=== PATIENT | male | born 1955 | race Caucasian/White ===

== ENCOUNTER 2020-06-15 15:49 | Outpatient (CLI) | payer MEDICARE, SELFPAY ==
--- NOTE | ~2020-06-15 | XR_ITS ---
XR abdomen/kub 1V 06/15/2020 16:13 INDICATION: Abdomen pain TECHNIQUE: KUB COMPARISON: None FINDINGS: Bowel gas pattern is normal. There is no evidence of free air, mass, organomegaly, ascites or obstruction. No abnormal calculi are seen. There are pelvic phleboliths The bones appear intact. IMPRESSION: 1: No acute abdominal abnormality identified. Reviewed, dictated and finalized at location A. [employer]
== END 2020-06-15 15:50 | disposition home or self-care (01) ==
LOC: ANHIMG 15:51
PROVIDERS: PCP Family Medicine; Visit Provider Physician Assistant
DX: R14.0 Abdominal distension (gaseous) (principal); R10.9 Unspecified abdominal pain
CPT/HCPCS: 74018

== ENCOUNTER 2020-06-16 12:38 | Outpatient (CLI) | payer MEDICARE, SELFPAY | END 2020-06-16 12:39 | disposition home or self-care (01) | LOC: ANHLAB 12:42 | PROVIDERS: PCP Family Medicine; Visit Provider Physician Assistant | DX: R19.7 Diarrhea, unspecified (principal) | CPT/HCPCS: 87045; 87046; 87427 ==

== ENCOUNTER 2020-06-24 08:28 | Outpatient (CLI) | payer MEDICARE, SELFPAY ==
[2020-06-24 08:48] LABS: Basophils Percent Auto 0.4 % (0.2-1.2); Eosinophils Absolute Auto 0.1 K/mm3 (0-0.3); Eosinophils Percent Auto 0.7 % (0-4.4); Hematocrit 38.7 % (42.0-52.0); Hemoglobin 12.8 g/dL (14.0-18.0); Immature Granulocyte Absolute 0.01 K/mm3 (0.00-0.031); Immature Granulocyte Percent A 0.1 % (0-0.5); Lymphocytes Absolute Auto 2.96 K/mm3 (0.9-3.2); Mean Corpuscular HGB Conc 33.1 g/dl (32-36); Mean Corpuscular Hemoglobin 31.1 pg (26-34); Mean Corpuscular Volume 94.2 fl (80-100); Mean Platelet Volume 10.1 fl (7.4-10.4); Monocytes Absolute Auto 0.6 K/mm3 (0.1-0.6); Monocytes Percent Auto 8.5 % (2.6-8.5); Neutrophils Absolute Auto 3.7 K/mm3 (1.3-6.7); Neutrophils Percent Auto 50.3 % (45.5-73.1); Platelet Count Result 227 k/mm3 (150-375); Red Blood Count 4.11 M/mm3 (4.6-6.20); Red Cell Distribution Width 12.6 % (11.5-14.5); White Blood Count 7.4 K/mm3 (4.5-10.0)
[2020-06-24 09:02] LABS: Anion Gap 6 mmol/L (8-16); Blood Urea Nitrogen 15 mg/dL (9-20); Carbon Dioxide 31 mmol/L (22-30); Chloride 105 mmol/L (98-107); Estimated Glomerular Filt Rate > 60; Glucose 96 mg/dL (75-110); Potassium 3.9 mmol/L (3.4-5.0); Sodium 142 mmol/L (137-145)
== END 2020-06-24 08:29 | disposition home or self-care (01) ==
PROVIDERS: PCP Family Medicine; Visit Provider Family Medicine
DX: R19.7 Diarrhea, unspecified (principal)
CPT/HCPCS: 36415; 80048; 85025

== ENCOUNTER → 2020-08-24 00:48 | Outpatient (CLI) | payer MEDICARE, SELFPAY ==
[2020-08-24 19:08] LABS: SARS-CoV-2 RNA PCR Negative
== END ==
PROVIDERS: PCP Family Medicine; Visit Provider Internal Medicine Gastroenterology
DX: Z01.812 Encounter for preprocedural laboratory examination (principal); Z20.822 Contact with and (suspected) exposure to COVID-19
CPT/HCPCS: C9803; U0003; U0005

== ENCOUNTER → 2020-10-02 00:43 | Outpatient (CLI) | payer MEDICARE, SELFPAY ==
[2020-10-03 00:06] LABS: SARS-CoV-2 RNA PCR Negative
== END ==
PROVIDERS: PCP Family Medicine; Visit Provider Internal Medicine Gastroenterology
DX: Z01.812 Encounter for preprocedural laboratory examination (principal); Z20.822 Contact with and (suspected) exposure to COVID-19
CPT/HCPCS: C9803; U0003; U0005

== ENCOUNTER 2020-10-06 01:59 | Day surgery (SDC) | payer MEDICARE, SELFPAY ==
[2020-08-17 12:19] VITALS: BMI 26.9
[2020-09-27 14:14] VITALS: BMI 25.4
[2020-10-06 06:48] VITALS: BP 94/86; PULSE 71; RESP 16; TEMP 36.3; O2SAT 97; BMI 25.5
[2020-10-06] MEDS: LACTATED RINGERS 1,000 ML 150 ML IV CONT (06:57)
--- NOTE | 2020-10-06 07:33 | WPDANESEPPF ---
Anes - Initial Pre Proc Eval Procedure: Operation Date: 10/06/20 08:00 Proposed Procedures p Esophagogastroduodenoscopy & Colonoscopy - Larry Espinoza MD Date/Time: 10/06/20 07:33 Surgeon: Larry Espinoza MD Pre Op Diagnosis: Diarrhea, Anemia Patient Data Age: 65 Gender: M Height: 6 ft 2 in Weight: 90.4 kg Last Vital Signs Temp 97.4 F L 10/06/20 06:48 Pulse 71 10/06/20 06:48 Resp 16 10/06/20 06:48 BP 94/86 L 10/06/20 06:48 Pulse Ox 97 10/06/20 06:48 Allergies Allergy/AdvReac Type Severity Reaction Status Date / Time carbinoxamine [Rondec] Allergy Intermediate Unknown Verified 10/06/20 06:46 codeine Allergy Intermediate Gastrointestinal Verified 10/06/20 06:46 Upset pseudoephedrine [Rondec] Allergy Intermediate Unknown Verified 10/06/20 06:46 Home Medications Medication Instructions Recorded Confirmed Type buspirone 5 mg tablet 5 mg PO BID #60 tablet 08/13/20 10/06/20 Rx ferrous sulfate 325 mg PO EVERY OTHER DAY 08/17/20 10/06/20 History mecobalamin (vitamin B12) 2,000 mg PO DAILY 08/17/20 10/06/20 History zjlngqvw-pod-xzzyh-vit K-lycop 0.5 tablet PO DAILY 08/17/20 10/06/20 History [One-A-Day Men's 50 Plus] sodium,potassium,mag sulfates 17.5 See Rx Instructions PO .COMPLEX 08/17/20 10/06/20 Rx gram-3.13 gram-1.6 gram oral soln #354 ml Patient hx anesthesia problems: none Family hx anesthesia problems: none PMFSH Past Medical History Medical History Alcohol abuse Belching Central perforation of tympanic membrane, unspecified ear Diarrhea Diverticulosis History of kidney stones Nephrolithiasis Tobacco abuse Surgical History Surgical History Status post laser lithotripsy of ureteral calculus Family History Family History Mother Hypertension, Onset Age: 84 Family history of cardiovascular disease, Onset Age: 84 Father Patient's father is , Onset Age: 96 Sibling Patient's brother is in good health Other Familial Alzheimer's disease of late onset Social History Social History (Updated 08/13/20 @ 15:33 by Grisel Jimenez) Social History: Smoking packs per day: 1 Smoking cigarettes per day: 20.0 Years smoked: 20 Smoking pack-years: 20.00 Smoking status: Former smoker Tobacco type: cigarettes Second hand tobacco smoke exposure: No Smoking end date: 06/25/89 Alcohol intake: former Substance use: never Substance use type: does not use Living arrangements: with family Gender identity (if verbalized by the patient): Male Spiritual care concerns: No Anes - Eval Final PreProcedure Day of Procedure 10/06/20 07:33 Patient weight: overweight Heart: regular rate and rhythm Lungs: clear to auscultation Airway: Mallampati scale (poor dentition; none loose) class II Neurological: alert and oriented Last oral intake: >/= 8 hours ASA classification: II Emergent: no Anesthetic plan: proceed Anesthesia type and monitoring: general GIVS and standard monitoring Informed Consent: The patient's anesthetic plan and its attendant risks and benefits were discussed with the patient/family/POA. Questions were solicited and answers provided to the satisfaction of the patient/family/POA.
--- NOTE | 2020-10-06 08:08 | PM.HPGS ---
History of Present Illness History of Present Illness Consent: Risks, benefits, and alternatives have been discussed and questions answered. Patient agrees to proceed with procedure. Chief complaint: Diarrhea, Anemia Narrative: Mango Richter is a 65 year old male with upper abdominal discomfort and cramping, diarrhea is gone but he is due to have a colonoscopy. Review of Systems Constitutional: Constitutional: Denies headache(s) and Denies weakness Eyes: Eyes: Denies blurry vision ENT: Reports Normal hearing present, Denies headache(s) and Denies neck pain Cardiovascular: Cardiovascular: Denies chest pain and Denies dyspnea Respiratory: Respiratory: Denies dyspnea Gastrointestinal: Gastrointestinal: Reports no additional gastrointestinal complaints Genitourinary: Genitourinary: Denies dysuria Musculoskeletal: Musculoskeletal: Denies neck pain Integumentary/Breasts: Skin/Breast: Denies dry skin Neurologic: Reports Normal hearing present, Denies headache(s) and Denies weakness Psychiatric: Psychiatric: Denies anxiety Endocrine: Endocrine: Denies change in body appearance Hematologic/Lymphatic: Hematologic/Lymphatic: Denies easy bleeding Allergic/Immunologic: Allergic/Immunologic: Denies urticaria PMFSH Past Medical History Medical History Alcohol abuse Belching Central perforation of tympanic membrane, unspecified ear Diarrhea Diverticulosis History of kidney stones Nephrolithiasis Tobacco abuse Surgical History Surgical History Status post laser lithotripsy of ureteral calculus Family History Family History Mother Hypertension, Onset Age: 84 Family history of cardiovascular disease, Onset Age: 84 Father Patient's father is , Onset Age: 96 Sibling Patient's brother is in good health Other Familial Alzheimer's disease of late onset Social History Social History (Updated 08/13/20 @ 15:33 by Grisel Jimenez) Social History: Smoking packs per day: 1 Smoking cigarettes per day: 20.0 Years smoked: 20 Smoking pack-years: 20.00 Smoking status: Former smoker Tobacco type: cigarettes Second hand tobacco smoke exposure: No Smoking end date: 06/25/89 Alcohol intake: former Substance use: never Substance use type: does not use Living arrangements: with family Gender identity (if verbalized by the patient): Male Spiritual care concerns: No Meds Home Medications and Allergies Home Medications Medication Instructions Recorded Confirmed Type buspirone 5 mg tablet 5 mg PO BID #60 tablet 08/13/20 10/06/20 Rx ferrous sulfate 325 mg PO EVERY OTHER DAY 08/17/20 10/06/20 History mecobalamin (vitamin B12) 2,000 mg PO DAILY 08/17/20 10/06/20 History xihbcjhq-ybc-nvdka-vit K-lycop 0.5 tablet PO DAILY 08/17/20 10/06/20 History [One-A-Day Men's 50 Plus] sodium,potassium,mag sulfates 17.5 See Rx Instructions PO .COMPLEX 08/17/20 10/06/20 Rx gram-3.13 gram-1.6 gram oral soln #354 ml Allergies Allergy/AdvReac Type Severity Reaction Status Date / Time carbinoxamine [Rondec] Allergy Intermediate Unknown Verified 10/06/20 06:46 codeine Allergy Intermediate Gastrointestinal Verified 10/06/20 06:46 Upset pseudoephedrine [Rondec] Allergy Intermediate Unknown Verified 10/06/20 06:46 Vital Signs Vital Signs - 24 hr 10/06/20 06:48 Temperature 97.4 F L Pulse Rate 71 Respiratory Rate 16 Blood Pressure 94/86 L Pulse Oximetry 97 Exam Const: General: comfortable and no acute distress HENMT: General nose exam: Normal nares present Eyes: General: appearance normal, both eyes and all related structures Neck: Neck: no JVD Resp: Auscultation: clear to auscultation bilaterally Cardio: Rate: regular rate Rhythm: regular rhythm GI: Inspection: non-
[2020-10-06 08:45] VITALS: BP 122/74; PULSE 72; RESP 20; O2SAT 99
[2020-10-06 08:54] VITALS: BP 117/77; PULSE 72; RESP 16; O2SAT 99
[2020-10-06 09:05] VITALS: BP 110/71; PULSE 65; RESP 17; O2SAT 99
== END 2020-10-06 09:23 | disposition home or self-care (01) ==
PROVIDERS: PCP Family Medicine; Visit Provider Internal Medicine Gastroenterology
PROC: 0DJ08ZZ Inspection of Upper Intestinal Tract, Via Natural or Artificial Opening Endoscopic (ICD-10-PCS; CPT 43235; principal; 2020-10-06 08:00)
DX: Z12.11 Encounter for screening for malignant neoplasm of colon (principal); K57.30 Diverticulosis of large intestine without perforation or abscess without bleeding; K64.8 Other hemorrhoids; K21.00 Gastro-esophageal reflux disease with esophagitis, without bleeding; K29.50 Unspecified chronic gastritis without bleeding; Z87.891 Personal history of nicotine dependence
CPT/HCPCS: 43239; G0121; 88305; C9803; J2704; J7120; U0003; U0005

== ENCOUNTER 2023-09-10 07:39 | Outpatient (CLI) | payer MEDICARE, SELFPAY ==
[2023-09-10 08:48] LABS: Basophils Percent Auto 0.3 % (0.2-1.2); Eosinophils Percent Auto 0.7 % (0-4.4); Hematocrit 40.8 % (42.0-52.0); Hemoglobin 13.5 g/dL (14.0-18.0); Immature Granulocyte Absolute 0.01 K/mm3 (0.00-0.031); Immature Granulocyte Percent A 0.2 % (0-0.5); Lymphocytes Absolute Auto 2.67 K/mm3 (0.9-3.2); Lymphocytes Percent Auto 43.6 % (18.3-44.2); Mean Corpuscular HGB Conc 33.1 g/dl (32-36); Mean Corpuscular Hemoglobin 31.4 pg (26-34); Mean Corpuscular Volume 94.9 fl (80-100); Mean Platelet Volume 10.8 fl (7.4-10.4); Monocytes Absolute Auto 0.6 K/mm3 (0.1-0.6); Monocytes Percent Auto 10.3 % (2.6-8.5); Neutrophils Absolute Auto 2.8 K/mm3 (1.3-6.7); Neutrophils Percent Auto 44.9 % (45.5-73.1); Platelet Count Result 247 k/mm3 (150-375); Red Cell Distribution Width 12.9 % (11.5-14.5); White Blood Count 6.1 K/mm3 (4.5-10.0)
[2023-09-10 08:59] LABS: Alanine Aminotransferase 24 U/L (6-50); Albumin Level 4.3 g/dL (3.5-5.1); Alkaline Phosphatase 63 U/L (38-126); Anion Gap 7 mmol/L (8-16); Aspartate Amino Transferase 31 U/L (17-59); Blood Urea Nitrogen 22 mg/dL (9-20); Calcium 9.3 mg/dL (8.4-10.2); Carbon Dioxide 26 mmol/L (22-30); Chloride 106 mmol/L (98-107); Cholesterol 188 mg/dL (0-200); Estimated Glomerular Filt Rate > 60; Glucose 94 mg/dL (65-110); HDL Direct 58 mg/dL; Potassium 3.9 mmol/L (3.4-5.0); Sodium 139 mmol/L (137-145); Triglycerides 115 mg/dL (<150)
[2023-09-10 09:10] LABS: LDL Cholesterol Direct 94 mg/dL
[2023-09-13 23:15] LABS: Vitamin D 1,25 (OH)2 Total 44 pg/mL (18-72); Vitamin D2 1,25 (OH)2 <8 pg/mL; Vitamin D3 1,25 (OH)2 44 pg/mL
[2023-09-15 17:53] LABS: PSA, Free 0.43 ng/mL; PSA, Total 2.8 ng/mL (<=4.0); Percent Free Prostate Spec Ag 15 % (>25)
== END 2023-09-10 07:40 | disposition home or self-care (01) ==
PROVIDERS: PCP Family Medicine; Visit Provider Family Medicine
DX: N40.1 Benign prostatic hyperplasia with lower urinary tract symptoms (principal); E78.5 Hyperlipidemia, unspecified; E55.9 Vitamin D deficiency, unspecified
CPT/HCPCS: 36415; 80053; 80061; 82652; 84153; 84154; 85025

== ENCOUNTER 2024-05-06 10:56 | Emergency (ER) | payer MEDICARE, SELFPAY ==
[2024-05-06 11:02] VITALS: BP 134/68; PULSE 93; RESP 15; TEMP 36.4; O2SAT 100
[2024-05-06] MEDS: LIDO 1%/EPINEPHRINE 1:100,000 20 ML VIAL (13:00)
--- NOTE | 2024-05-06 13:06 | ED.SKABFB ---
HPI - Skin/Abscess/Foreign Bdy General Chief complaint: Skin/Abscess/Foreign Body Stated complaint: infected cyst on back Time Seen by Provider: 05/06/24 11:59 History of Present Illness HPI narrative: Patient is a 6-year-old male who presents ER with infection to a cyst over his left low back. Cyst is been present for years but recently came slammed in your dated. Unsure what caused it. Denies injury. 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 He has been on clindamycin without improvement. He is supposed follow-up with surgery in 2 days. Related Data Allergies Allergy/AdvReac Type Severity Reaction Status Date / Time carbinoxamine [Rondec] Allergy Intermediate Unknown Verified 05/01/24 13:09 codeine Allergy Intermediate Gastrointestinal Verified 05/01/24 13:09 Upset pseudoephedrine [Rondec] Allergy Intermediate Unknown Verified 05/01/24 13:09 Review of Systems Constitutional: Constitutional: Reports no additional constitutional complaints Musculoskeletal: Musculoskeletal: Reports no additional musculoskeletal complaints Integumentary/Breasts: Skin/Breast: Reports erythema, Denies rash and Denies skin ulcer Comments: Back cyst/infection. [facility] Past Medical History Medical History Abdominal pain Alcohol abuse Anxiety Asbestos exposure Belching BPH (benign prostatic hyperplasia) Central perforation of tympanic membrane, unspecified ear Cerumen impaction Cold feet Colon cancer screening Diarrhea Diverticulosis Encounter for general adult medical examination without abnormal findings Encounter for general adult medical examination without abnormal findings Gastroenteritis Hearing loss due to cerumen impaction History of kidney stones Impacted cerumen of left ear Lipid screening Lipid screening Nephrolithiasis On statin therapy Otitis media (03/08/15) Palpitations Sciatica Sore throat (03/08/15) Thyroid disorder screen Tobacco abuse Wax in ear Weakness Weight loss Surgical History Surgical History Status post laser lithotripsy of ureteral calculus Family History Family History Mother Hypertension, Onset Age: 84 Family history of cardiovascular disease, Onset Age: 84 Father Patient's father is , Onset Age: 96 Sibling Patient's brother is in good health Other Familial Alzheimer's disease of late onset Social History Social History Social History: Smoking packs per day: 1 Smoking cigarettes per day: 20.0 Years smoked: 20 Smoking pack-years: 20.00 Smoking status: Former smoker Tobacco type: cigarettes Second hand tobacco smoke exposure: No Smoking end date: 06/25/89 Alcohol intake: former Alcohol use details: Quit in 1982 Substance use: never Substance use type: does not use Do You Feel Safe in your Home?: Yes Lack of Transportation: No Lack of Food: Never True Current Housing: I Have Housing Concerned About Future Housing: No Difficulty Paying Gas/Electric Bills: No Difficulty Paying for Meds: No Currently Unemployed: YES Education: Don't Know Difficulty w/ Childcare or Family Care: No Living arrangements: with family Occupation/Education: retired Gender identity (if verbalized by the patient): Male Sexual Orientation (if Verbalized by the Patient): Straight or Heterosexual Spiritual care concerns: No Exam Narrative: GENERAL: Well-appearing, well-nourished, and in no acute distress. HEAD: Normocephalic, atraumatic. ENT: Mucous membranes moist. EXTREMITIES: Normal range of motion. No edema. SKIN: Warm, dry . Large cystic abscess left low back with surrounding induration. No active drainage. NEURO: Alert and oriented x3. PSYCH: Normal mood and affect. Course Course Emergency Course: Incised and drained. Tolerated well. Packed. Follow-up with general surgery. Packing to be removed in 2 days. Vital Signs Vital signs: Vital Signs Temperature 97.6 F 05/06/24 11:02 Pulse Rate 93 05/06/24 11:02 Respiratory Rate 15 05/06/24 11:02 Blood Pressure 134/68 05/06/24 11:02 Pulse Oximetry 100 05/06/24 11:02 Oxygen Delivery Room Air 05/06/24 11:02 Temperature 98.2 F 05/06/24 13:33 Pulse Rate 89 05/06/24 13:33 Respiratory Rate 18 05/06/24 13:33 Blood Pressure 140/88 05/06/24 13:33 Pulse Oximetry 99 05/06/24 13:33 Oxygen Delivery Room Air 05/06/24 11:02 Procedures Abscess I/D back: Side (if applicable): left Local Anesthetic: lidocaine 1% and with epi Amount of anesthesia used (mL): 6 Technique: incised with #11 blade Irrigation: No Packing used?: iodoform I&D Results: Pus and Other ( Cystic material) Complications: pain Discharge Plan Discharge Clinical Impression: Abscess Patient Disposition: Home, Self-Care Condition: Stable Instructions: Antibiotic Form, Abscess (ED) Additional Instructions: Follow-up with general surgery as previously scheduled. He will need the packing removed in 2 days. Return the ER if you have fever over 100.4? F, you have increased pain, or you have additional concerns. Prescriptions: New hydrocodone-acetaminophen 5-325 mg tablet 1 tablet PO Q6H PRN (Reason: pain) Qty: 10 0RF No Action quetiapine [Seroquel] 25 mg tablet 25 mg PO QHS Qty: 90 0RF clindamycin HCl 300 mg capsule 300 mg PO QID Qty: 40 0RF Follow-up/Referrals: Halley Rubin MD [Primary Care Provider] -
--- NOTE | 2024-05-06 13:30 | PC.NURSE ---
Yann - RN assisted Dr. Chase I & D of infected cyst to left lower back. Large amount of white clumps & blood drainage noted. Area surrounding remained pink & firm. 1/4 inch iodoform gauze packed & covered with gauze dressing.
[2024-05-06 13:33] VITALS: BP 140/88; PULSE 89; RESP 18; TEMP 36.8; O2SAT 99
== END 2024-05-06 13:38 | disposition home or self-care (01) ==
PROVIDERS: Emergency Provider Emergency Medicine; PCP Family Medicine
DX: L02.212 Cutaneous abscess of back [any part, except buttock and flank] (principal); F41.9 Anxiety disorder, unspecified; N40.0 Benign prostatic hyperplasia without lower urinary tract symptoms; K57.90 Diverticulosis of intestine, part unspecified, without perforation or abscess without bleeding; Z87.442 Personal history of urinary calculi; Z87.891 Personal history of nicotine dependence
CPT/HCPCS: 10061; 99283; J2004